=== PATIENT | female | born 1990 | race Hispanic/Latino ===

== ENCOUNTER 2017-12-01 18:10 | Inpatient (IN) | payer OTHER ==
[2017-12-01 18:45] LABS: Basophils % (Auto) 0.3 % (0.0-1.8); Eosinophils # (Auto) 0.1 K/mm3 (0.0-0.4); Eosinophils % (Auto) 0.7 % (0.0-4.3); Hemoglobin 14.6 gm/dl (10.1-14.3); Lymphocytes # (Auto) 4.1 K/mm3 (1.2-5.4); Lymphocytes % (Auto) 34.7 % (13.4-35.0); Mean Corpuscular HGB Conc 33 % (30-34); Mean Corpuscular Hemoglobin 28 pg (28-32); Mean Corpuscular Volume 86 fl (79-97); Monocytes # (Auto) 0.9 K/mm3 (0.0-0.8); Monocytes % (Auto) 7.5 % (0.0-7.3); Platelet Count 261 K/mm3 (140-440); Red Blood Count 5.15 M/mm3 (3.65-5.03); Red Cell Distribution Width 15.7 % (13.2-15.2)
[2017-12-01 19:21] LABS: Bilirubin,Urine NEG (Negative); Blood,Urine NEG (Negative); Color,Urine Yellow (Yellow); Protein,Urine <15 mg/dL mg/dL (Negative); Urobilinogen,Urine < 2.0 mg/dL (<2.0)
[2017-12-01 19:26] LABS: HCG Qualitative,Urine Negative (Negative)
[2017-12-01 20:08] LABS: Alanine Aminotransferase 230 units/L (7-56); Albumin 4.3 g/dL (3.9-5); BUN/Creatinine Ratio 14; Blood Urea Nitrogen 11 mg/dL (7-17); Calcium 9.1 mg/dL (8.4-10.2); Hemolysis Index 14
[2017-12-01] MEDS ORDERED: NACL 0.9% 1000 ML 1,000 ML IV ONE (20:59)
--- NOTE | 2017-12-01 20:59 | Emergency Department Report ---
ED Abdominal Pain HPI - General Chief Complaint: Abdominal Pain Stated Complaint: NAUSEA/VOMITING Time Seen by Provider: 12/01/17 20:57 Source: patient Mode of arrival: Ambulatory Limitations: No Limitations - History of Present Illness Initial Comments: 27-year-old woman with nausea vomiting, with blood, and melanotic stool for the past couple days, along with epigastric pain radiating to her lower abdomen as her primary complaint. She has a history of cirrhosis of the liver, but no prior history of gastric intestinal bleeding or any known history of esophageal varices or even peptic ulcer disease; however she reports that she has also been having some intermittent episodes of vomiting blood, and has been weak, reports that she passed out last evening. Patient is a truck shop supervisor, travels over the country extensively, but had symptoms recently, and was treated at a hospital in [place] last week for similar complaints. She was given prescriptions primarily for antacids. This has not helped. She was evaluated at an emergency department in [place] 1 week ago, was told that things were mostly okay, and given prescriptions for antacid medications primarily, but noted that the dark stool and vomiting began several days later. Patient lives in [place], is currently traveling on the way back, but developed dark stool over the past day or so, but finds that the vomiting is preventing her from getting down any fluids or taking her usual Dilantin, which she takes for seizures, and pre-existing ventriculoperitoneal shunt. Cirrhosis was recently diagnosed, and she has a distant history of intravenous drug use 5-10 years ago, had been stable stage III hepatitis, but that fibrosis/ cirrhosis was diagnosed at cholecystectomy Mar 2017. She has not had any treatment for hepatitis that she is aware of, does not recognize the name of antiviral medications. Onset/Timin -: Gradual, days(s) Location: epigastric Radiation: other (midabdomen) Migration to: no migration Severity: moderate Severity scale (0 -10): 6 Quality: aching Improves With: nothing Worsens With: eating, vomiting Associated Symptoms: nausea, vomiting, hematemesis, melena. denies: fever, chills Treatments Prior to Arrival: antacids - Related Data Allergies Allergy/AdvReac Type Severity Reaction Status Date / Time ketorolac [From Toradol] Allergy Seizure Verified 12/01/17 18:23 tramadol [From Ultram] Allergy Seizure Verified 12/01/17 18:23 ED Review of Systems ROS: Stated complaint: NAUSEA/VOMITING Other details as noted in HPI Constitutional: weakness. denies: chills, diaphoresis, fever ENT: denies: ear pain, throat pain Respiratory: denies: cough, shortness of breath, wheezing Cardiovascular: denies: chest pain, palpitations Endocrine: no symptoms reported Gastrointestinal: abdominal pain, nausea, vomiting, hematemesis, melena Genitourinary: denies: urgency, dysuria, discharge Musculoskeletal: denies: back pain, joint swelling, arthralgia Skin: denies: rash, lesions Neurological: denies: headache, weakness, paresthesias Psychiatric: denies: anxiety, depression Hematological/Lymphatic: denies: easy bleeding, easy bruising ED Past Medical Hx - Past Medical History Previous Medical History?: Yes Hx Liver Disease: Yes (hepatitis C) Hx of Cancer: Yes Additional medical history: Hydrocephalus with PURE CULTURE OPERATOR shunt, S/P repair Jul 2016. stage IV cirrhosis of liver due to infection in March of 2017, cholecystectomy Mar 2017 - Surgical History Past Surgical History?: Yes Hx Cholecystectomy: Yes Additional Surgical History: Jul 2016 PURE CULTURE OPERATOR shunt revision. - Social History Smoking Status: Current Every Day Smoker Substance Use Type: None, Marijuana (occasionally) ED Physical Exam - General Limitations: No Limitations General appearance: alert, in no apparent distress - Head Head exam: Present: atraumatic - Eye Eye exam: Present: normal appearance, PERRL - ENT ENT exam: Present: normal exam - Neck Neck exam: Present: normal inspection. Absent: tenderness - Respiratory Respiratory exam: Present: normal lung sounds bilaterally. Absent: wheezes, rales, rhonchi - Cardiovascular Cardiovascular Exam: Present: regular rate - GI/Abdominal GI/Abdominal exam: Present: tenderness (localized epigastrium, without guarding or rebound). Absent: guarding, rebound, normal bowel sounds - Rectal Rectal exam: Present: heme (+) stool (minimal amount of stool, guaiac is barely positive) - Extremities Exam Extremities exam: Present: other (poor vascular access) - Back Exam Back exam: Present: normal inspection ED Course Vital Signs 12/01/17 12/01/17 12/01/17 18:13 20:26 22:08 Temperature 99.0 F Pulse Rate 122 H Respiratory 16 16 Rate Blood Pressure 140/88 O2 Sat by Pulse 98 98 Oximetry - Consultations Consultation #1: 12/02/17 01:35 Hospital is contacted at 00 15 hours for admission for this patient with possible GI bleed, and history of hepatitis C with cirrhosis, with possibility of esophageal varices or even peptic ulcer disease or gastric ulcer. Although patient is currently stable, she will need serial monitoring of hemoglobin and hematocrit, and stabilizing treatment if she shows signs of significant bleeding , which is possible with her underlying comorbid conditions. ED Medical Decision Making - Lab Data Result diagrams: 12/01/17 18:31 12/01/17 21:04 - Medical Decision Making Patient has heme-positive stool, with recent history of persistent upper abdominal pain, and hematemesis, suggestive of an upper GI bleed, or the possibility of esophageal varices, given patient's underlying condition of hepatitis C and secondary cirrhosis. Although patient is currently stable, she will need serial monitoring of hemoglobin and hematocrit, and stabilizing treatment if she shows signs of significant bleeding, which is possible with her underlying comorbid conditions. Critical Care Time: No Critical care attestation.: If time is entered above; I have spent that time in minutes in the direct care of this critically ill patient, excluding procedure time. ED Disposition Disposition: OP ADMIT IP TO THIS HOSP Is pt being admited?: Yes Does the pt Need Aspirin: No Condition: Stable Instructions: Abdominal Pain (ED) Referrals: PRIMARY CARE, [Primary Care Provider] - 3-5 Days Time of Disposition: 00:30
[2017-12-01 21:31] LABS: INR 0.9 (0.87-1.13)
[2017-12-01 21:34] LABS: Alanine Aminotransferase 230 units/L (7-56); BUN/Creatinine Ratio 14; Blood Urea Nitrogen 10 mg/dL (7-17); Calcium 9.2 mg/dL (8.4-10.2); Hemolysis Index 25
[2017-12-01 21:35] LABS: Bilirubin,Direct < 0.2 mg/dL (0-0.2)
[2017-12-01 21:45] LABS: Albumin 4.5 g/dL (3.9-5)
[2017-12-01] MEDS ORDERED: PROTONIX IV ONE (21:48)
[2017-12-01] MEDS ORDERED: ROXICODONE PO ONE (21:49)
[2017-12-01] MEDS ORDERED: ZOFRAN ODT PO ONE (21:50)
[2017-12-01] MEDS ORDERED: CEREBYX 1,000 MG.PE in NACL 0.9% 100 ML IV ONE (22:00)
[2017-12-01] MEDS ORDERED: LIDOCAINE VISCOUS 2% PO ONE (23:26)
[2017-12-01] MEDS ORDERED: ALUM-MAG HYDROX-SIMETH 200-200-20MG/5ML PO ONE (23:27)
[2017-12-01] MEDS ORDERED: XYLOCAINE CARDIAC IV ONE (23:36)
[2017-12-01] MEDS ORDERED: BENADRYL IV ONE (23:36)
[2017-12-02] MEDS ORDERED: SODIUM CHLORIDE FLUSH SYRINGE 10 ML IV PRN (00:58)
[2017-12-02] MEDS ORDERED: MOTRIN PO PRN (01:02)
--- NOTE | 2017-12-02 02:18 | History and Physical Report ---
History of Present Illness Date of examination: 12/02/17 Date of admission: 12/02/17 00:59 Chief complaint: Nausea and vomiting History of present illness: Patient is a 27-year-old female with history of cirrhosis who presented to the ED on account of 4 days history of vomiting bloody emesis. She has associated upper abdominal pain and passage of black tarry stool. She also admitted to headaches, dizziness, generalized weakness, chest heaviness, shortness of breath, palpitations and an episode of syncope. No fever, chills, cough, leg swelling, orthopnea, or PND. Past History Past Medical History: other (cirrhosis, chronic hepatitis B and C, hydrocephalus s/p ARCHITECTURAL COATING FINISHER shunt placement) Past Surgical History: cholecystectomy, Other (ARCHITECTURAL COATING FINISHER shunt placement) Social history: smoking (for 15 years. Used IV dilaudid for 2 years but quitted 5 years ago. Occasional Marijuana user. Denies alcohol use) Family history: other (reviewed and noncontributory) Medications and Allergies Allergies Allergy/AdvReac Type Severity Reaction Status Date / Time ketorolac [From Toradol] Allergy Seizure Verified 12/01/17 18:23 tramadol [From Ultram] Allergy Seizure Verified 12/01/17 18:23 Active Meds: Active Medications Potassium Chloride (Kcl 10meq/100ml) 10 meq in 100 mls @ 100 mls/hr IV Q1H [facility] Stop: 12/02/17 05:59 Ondansetron HCl (Zofran) 4 mg IV Q8H PRN PRN Reason: Nausea And Vomiting Oxycodone HCl (Roxicodone) 5 mg PO Q4H PRN PRN Reason: Pain Pantoprazole Sodium (Protonix) 40 mg IV DAILY [facility] Potassium Chloride (K-Dur) 40 meq PO DAILY [facility] Stop: 12/04/17 09:59 Sodium Chloride (Sodium Chloride Flush Syringe 10 Ml) 10 ml IV BID [facility] Sodium Chloride (Sodium Chloride Flush Syringe 10 Ml) 10 ml IV PRN PRN PRN Reason: LINE FLUSH Review of Systems All systems: negative (except as documented in the HPI, all other systems were reviewed and negative.) Exam - Constitutional Vitals: Temp Pulse Resp BP Pulse Ox 99.0 F 82 25 H 133/86 100 12/01/17 18:13 12/02/17 00:00 12/02/17 00:00 12/02/17 00:16 12/02/17 00:16 General appearance: Present: no acute distress - EENT Eyes: Present: PERRL, EOM intact ENT: hearing intact, clear oral mucosa - Neck Neck: Present: supple, normal ROM - Respiratory Respiratory effort: normal Respiratory: bilateral: CTA - Cardiovascular Rhythm: regular Heart Sounds: Present: S1 & S2. Absent: rub, click - Extremities Extremities: pulses symmetrical, No edema - Abdominal General gastrointestinal: Present: soft, tender (epigastric), non-distended, normal bowel sounds Female genitourinary: Present: normal - Integumentary Integumentary: Present: warm, dry - Musculoskeletal Musculoskeletal: gait normal, strength equal bilaterally - Psychiatric Psychiatric: appropriate mood/affect - Neurologic Neurologic: CNII-XII intact, moves all extremities Results - Labs CBC & Chem 7: 12/01/17 18:31 12/01/17 21:04 Labs: Laboratory Last Values WBC 11.9 K/mm3 (4.5-11.0) H 12/01/17 18:31 RBC 5.15 M/mm3 (3.65-5.03) H 12/01/17 18:31 Hgb 14.6 gm/dl (10.1-14.3) H 12/01/17 18:31 Hct 44.0 % (30.3-42.9) H 12/01/17 18:31 MCV 86 fl (79-97) 12/01/17 18:31 MCH 28 pg (28-32) 12/01/17 18:31 MCHC 33 % (30-34) 12/01/17 18: RDW 15.7 % (13.2-15.2) H 12/01/17 18:31 Plt Count 261 K/mm3 (140-440) 12/01/17 18:31 Lymph % (Auto) 34.7 % (13.4-35.0) 12/01/17 18:31 [place] % (Auto) 7.5 % (0.0-7.3) H 12/01/17 18:31 Eos % (Auto) 0.7 % (0.0-4.3) 12/01/17 18:31 Baso % (Auto) 0.3 % (0.0-1.8) 05/06/18 18:31 Lymph # 4.1 K/mm3 (1.2-5.4) 12/01/17 18:31 [place] # 0.9 K/mm3 (0.0-0.8) H 12/01/17 18:31 Eos # 0.1 K/mm3 (0.0-0.4) 12/01/17 18:31 Baso # 0.0 K/mm3 (0.0-0.1) 12/01/17 18:31 Seg Neutrophils % 56.8 % (40.0-70.0) 12/01/17 18:31 Seg Neutrophils # 6.8 K/mm3 (1.8-7.7) 12/01/17 18:31 PT 12.6 Sec. (12.2-14.9) 12/01/17 21:06 INR 0.90 (0.87-1.13) 12/01/17 21:06 Sodium 138 mmol/L (137-145) 12/01/17 21:04 Potassium 3.3 mmol/L (3.6-5.0) L 12/01/17 21:04 Chloride 98.1 mmol/L (98-107) 12/01/17 21:04 Carbon Dioxide 27 mmol/L (22-30) 12/01/17 21:04 Anion Gap 16 mmol/L 12/01/17 21:04 BUN 10 mg/dL (7-17) 12/01/17 21:04 Creatinine 0.7 mg/dL (0.7-1.2) 12/01/17 21:04 Estimated GFR > 60 ml/min 12/01/17 21:04 BUN/Creatinine Ratio 14 % 12/01/17 21:04 Glucose 95 mg/dL (65-100) 12/01/17 21:04 Calcium 9.2 mg/dL (8.4-10.2) 12/01/17 21:04 Total Bilirubin 0.50 mg/dL (0.1-1.2) 12/01/17 21:04 Direct Bilirubin < 0.2 mg/dL (0-0.2) 12/01/17 21:04 Indirect Bilirubin 0.3 mg/dL 12/01/17 21:04 AST 160 units/L (5-40) H 12/01/17 21:04 ALT 230 units/L (7-56) H 12/01/17 21:04 Alkaline Phosphatase 95 units/L (35-129) 12/01/17 21:04 Ammonia 16.0 umol/L (25-60) L 12/01/17 21:04 Total Protein 7.8 g/dL (6.3-8.2) 12/01/17 21:04 Albumin 4.5 g/dL (3.9-5) 12/01/17 21:04 Albumin/Globulin Ratio 1.4 % 12/01/17 21:04 Urine Color Yellow (Yellow) 12/01/17 18:44 Urine Turbidity Clear (Clear) 12/01/17 18:44 Urine pH 7.0 (5.0-7.0) 12/01/17 18:44 Ur Specific [employer] 1.008 (1.003-1.030) 12/01/17 18:44 Urine Protein <15 mg/dl mg/dL (Negative) 12/01/17 18:44 Urine Glucose (UA) Neg mg/dL (Negative) 12/01/17 18:44 Urine Ketones Neg mg/dL (Negative) 12/01/17 18:44 Urine Blood Neg (Negative) 12/01/17 18:44 Urine Nitrite Neg (Negative) 12/01/17 18:44 Urine Bilirubin Neg (Negative) 12/01/17 18:44 Urine Urobilinogen < 2.0 mg/dL (<2.0) 12/01/17 18:44 Ur Leukocyte Esterase Neg (Negative) 12/01/17 18:44 Urine WBC (Auto) 1.0 /HPF (0.0-6.0) 12/01/17 18:44 Urine RBC (Auto) 2.0 /HPF (0.0-6.0) 12/01/17 18:44 U Epithel Cells (Auto) 1.0 /HPF (0-13.0) 12/01/17 18:44 Urine HCG, Qual Negative (Negative) 12/01/17 18:44 Phenytoin 0.8 ug/mL (10.0-20.0) L 12/01/17 21:06 Blood Type A POSITIVE 12/01/17 18:31 Antibody Screen Negative 12/01/17 18:31 Assessment and Plan Assessment and plan: GI bleed with melena -H/H stable, will monitor levels and transfuse pt as needed -Consider GI consult Intractable nausea and vomiting -Patient will be placed on antiemetics Hypokalemia -Will replete potassium and monitor level -Will check magnesium level Chronic hepatitis B and C -For outpatient follow-up Cirrhosis of the liver -For outpatient follow-up Transaminitis secondary to the cirrhosis -Will monitor LFT levels. Polysubstance abuse(tobacco, IV dilaudid and marijuana) -Patient counseled on cessation Prophylaxis -DVT prophylaxis with SCD and GI prophylaxis with Protonix 38 minutes spent coordinating care
[2017-12-02] MEDS ORDERED: NACL 0.9% 1000 ML 1,000 ML IV ONE (02:43)
[2017-12-02] MEDS: ZOFRAN IV PRN ×2 (03:25→12:33)
[2017-12-02] MEDS: KCL 10MEQ/100ML 10 MEQ/100 ML BAG IV SCH ×4 (03:25→08:02)
[2017-12-02] MEDS: ROXICODONE PO PRN ×4 (03:46→17:33)
[2017-12-02] MEDS ORDERED: BENADRYL PO ONE (04:12)
[2017-12-02 06:15] LABS: Basophils % (Auto) 0.2 % (0.0-1.8); Eosinophils # (Auto) 0.1 K/mm3 (0.0-0.4); Eosinophils % (Auto) 0.9 % (0.0-4.3); Hematocrit 38.2 % (30.3-42.9); Hemoglobin 12.2 gm/dl (10.1-14.3); Lymphocytes # (Auto) 3.5 K/mm3 (1.2-5.4); Lymphocytes % (Auto) 39.8 % (13.4-35.0); Mean Corpuscular HGB Conc 32 % (30-34); Mean Corpuscular Hemoglobin 28 pg (28-32); Mean Corpuscular Volume 86 fl (79-97); Monocytes # (Auto) 0.7 K/mm3 (0.0-0.8); Monocytes % (Auto) 8.1 % (0.0-7.3); Platelet Count 216 K/mm3 (140-440); Red Blood Count 4.43 M/mm3 (3.65-5.03); Red Cell Distribution Width 16.2 % (13.2-15.2)
[2017-12-02 07:09] LABS: Bilirubin,Urine NEG (Negative); Blood,Urine SM (Negative); Color,Urine Yellow (Yellow); Mucus,Urine 1+ /HPF; Protein,Urine <15 mg/dL mg/dL (Negative); Urobilinogen,Urine < 2.0 mg/dL (<2.0)
[2017-12-02] MEDS: K-DUR PO SCH (09:47)
[2017-12-02] MEDS: REGLAN IV PRN (09:51)
[2017-12-02] MEDS: PROTONIX IV SCH (12:18)
[2017-12-02] MEDS: SODIUM CHLORIDE FLUSH SYRINGE 10 ML IV SCH ×2 (12:20→22:15)
--- NOTE | 2017-12-02 12:28 | Gastroenterology Consultation ---
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 This morning she was resting in bed w/o acute distress and family at bedside. Reports multiple episodes of N/V daily x 8 days with emesis being bile colored until 4 days ago when it turned to bright red blood along with developing black tarry stools. Last episode of hematemesis/melena was yesterday. No signs of active bleeding today. Tolerating clear liquids. Denies fever, wt loss, CP, SOB, dizziness, dysphagia, diarrhea, constipation, or hematochezia. 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 Last use of IV drugs approximately 3 months ago per pt/family. No ETOH abuse. No previous EGD. No hx of PUD or prior GI bleeding but admits to taking Ibuprofen 4x/day at home. Past History Past Medical History: seizures, other (cirrhosis, chronic hepatitis B and C, hydrocephalus s/p MACHINE SPRING FORMER shunt placement) Past Surgical History: cholecystectomy, Other (MACHINE SPRING FORMER shunt placement) Social history: smoking (for 15 years. Used IV dilaudid for 2 years but quitted 5 years ago. Occasional Marijuana user. Denies alcohol use), IV drug use Family history: other (reviewed and noncontributory) Medications and Allergies Allergies Allergy/AdvReac Type Severity Reaction Status Date / Time ketorolac [From Toradol] Allergy Seizure Verified 12/01/17 18:23 tramadol [From Ultram] Allergy Seizure Verified 12/01/17 18:23 cranberry Allergy Intermediate Hives Uncoded 12/02/17 12:27 Active Meds: Active Medications Sodium Chloride (Nacl 0.9% 1000 Ml) 1,000 mls @ 75 mls/hr IV ONCE ONE Stop: 12/02/17 16:02 Last Admin: 12/02/17 03:25 Dose: 75 mls/hr Metoclopramide HCl (Reglan) 10 mg IV Q6H PRN PRN Reason: Nausea And Vomiting Last Admin: 12/02/17 09:51 Dose: 10 mg Ondansetron HCl (Zofran) 4 mg IV Q8H PRN PRN Reason: Nausea And Vomiting Last Admin: 12/02/17 03:25 Dose: 4 mg Oxycodone HCl (Roxicodone) 5 mg PO Q4H PRN PRN Reason: Pain Last Admin: 12/02/17 12:24 Dose: 5 mg Pantoprazole Sodium (Protonix) 40 mg IV DAILY [facility] Last Admin: 12/02/17 12:18 Dose: 40 mg Potassium Chloride (K-Dur) 40 meq PO DAILY [facility] Stop: 12/04/17 09:59 Last Admin: 12/02/17 09:47 Dose: 40 meq Sodium Chloride (Sodium Chloride Flush Syringe 10 Ml) 10 ml IV BID [facility] Last Admin: 12/02/17 12:20 Dose: 10 ml Sodium Chloride (Sodium Chloride Flush Syringe 10 Ml) 10 ml IV PRN PRN PRN Reason: LINE FLUSH Review of Systems - Review of Systems All systems: negative Gastrointestinal: abdominal pain (epigastric), nausea, vomiting, hematemesis, melena Exam - Constitutional Vital Signs: Temp Pulse Resp BP Pulse Ox 97.9 F 74 18 124/83 98 12/02/17 08:05 12/02/17 08:05 12/02/17 12:24 12/02/17 08:05 12/02/17 08:05 General appearance: no acute distress - EENT Eyes: PERRL, EOM intact ENT: hearing intact - Respiratory Respiratory: bilateral: CTA - Cardiovascular Rhythm: regular Heart Sounds: Present: S1 & S2 - Gastrointestinal General gastrointestinal: Present: soft, tender (mild generalized TTP), non- distended, normal bowel sounds - Integumentary Integumentary: Present: warm, dry - Neurologic Neurological: alert and oriented x3 - Labs CBC & Chem 7: 12/02/17 05:24 12/01/17 21:04 Lab Results: Laboratory Results - last 24 hr 12/01/17 12/01/17 12/01/17 18:31 18:31 18:31 WBC 11.9 H RBC 5.15 H Hgb 14.6 H Hct 44.0 H MCV 86 MCH 28 MCHC 33 RDW 15.7 H Plt Count 261 Lymph % (Auto) 34.7 [place] % (Auto) 7.5 H Eos % (Auto) 0.7 Baso % (Auto) 0.3 Lymph # 4.1 [place] # 0.9 H Eos # 0.1 Baso # 0.0 Seg Neutrophils % 56.8 Seg Neutrophils # 6.8 PT INR Sodium 136 L Potassium 3.3 L Chloride 94.6 L Carbon Dioxide 23 Anion Gap 22 BUN 11 Creatinine 0.8 Estimated GFR > 60 BUN/Creatinine Ratio 14 Glucose 134 H POC Glucose Calcium 9.1 Magnesium Total Bilirubin 0.50 Direct Bilirubin Indirect Bilirubin AST 173 H ALT 230 H Alkaline Phosphatase 101 Ammonia Total Protein 8.1 Albumin 4.3 Albumin/Globulin Ratio 1.1 Urine Color Urine Turbidity Urine pH Ur Specific [place] Urine Protein Urine Glucose (UA) Urine Ketones Urine Blood Urine Nitrite Urine Bilirubin Urine Urobilinogen Ur Leukocyte Esterase Urine WBC (Auto) Urine RBC (Auto) U Epithel Cells (Auto) Urine Mucus Urine HCG, Qual Phenytoin Blood Type A POSITIVE Antibody Screen Negative 12/01/17 12/01/17 12/01/17 18:44 21:04 21:04 WBC RBC Hgb Hct MCV MCH MCHC RDW Plt Count Lymph % (Auto) [place] % (Auto) Eos % (Auto) Baso % (Auto) Lymph # [place] # Eos # Baso # Seg Neutrophils % Seg Neutrophils # PT INR Sodium 138 Potassium 3.3 L Chloride 98.1 Carbon Dioxide 27 Anion Gap 16 BUN 10 Creatinine 0.7 Estimated GFR > 60 BUN/Creatinine Ratio 14 Glucose 95 POC Glucose Calcium 9.2 Magnesium Total Bilirubin 0.50 Direct Bilirubin < 0.2 Indirect Bilirubin 0.3 AST 160 H ALT 230 H Alkaline Phosphatase 95 Ammonia 16.0 L Total Protein 7.8 Albumin 4.5 Albumin/Globulin Ratio 1.4 Urine Color Yellow Urine Turbidity Clear Urine pH 7.0 Ur Specific [place] 1.008 Urine Protein <15 mg/dl Urine Glucose (UA) Neg Urine Ketones Neg Urine Blood Neg Urine Nitrite Neg Urine Bilirubin Neg Urine Urobilinogen < 2.0 Ur Leukocyte Esterase Neg Urine WBC (Auto) 1.0 Urine RBC (Auto) 2.0 U Epithel Cells (Auto) 1.0 Urine Mucus Urine HCG, Qual Negative Phenytoin Blood Type Antibody Screen 12/01/17 12/01/17 12/02/17 21:06 21:06 05:24 WBC 8.9 RBC 4.43 Hgb 12.2 Hct 38.2 MCV 86 MCH 28 MCHC 32 RDW 16.2 H Plt Count 216 Lymph % (Auto) 39.8 H [place] % (Auto) 8.1 H Eos % (Auto) 0.9 Baso % (Auto) 0.2 Lymph # 3.5 [place] # 0.7 Eos # 0.1 Baso # 0.0 Seg Neutrophils % 51.0 Seg Neutrophils # 4.5 PT 12.6 INR 0.90 Sodium Potassium Chloride Carbon Dioxide Anion Gap BUN Creatinine Estimated GFR BUN/Creatinine Ratio Glucose POC Glucose Calcium Magnesium Total Bilirubin Direct Bilirubin Indirect Bilirubin AST ALT Alkaline Phosphatase Ammonia Total Protein Albumin Albumin/Globulin Ratio Urine Color Urine Turbidity Urine pH Ur Specific [place] Urine Protein Urine Glucose (UA) Urine Ketones Urine Blood Urine Nitrite Urine Bilirubin Urine Urobilinogen Ur Leukocyte Esterase Urine WBC (Auto) Urine RBC (Auto) U Epithel Cells (Auto) Urine Mucus Urine HCG, Qual Phenytoin 0.8 L Blood Type Antibody Screen 12/02/17 12/02/17 12/02/17 05:24 06:35 11:41 WBC RBC Hgb Hct MCV MCH MCHC RDW Plt Count Lymph % (Auto) [place] % (Auto) Eos % (Auto) Baso % (Auto) Lymph # [place] # Eos # Baso # Seg Neutrophils % Seg Neutrophils # PT INR Sodium Potassium Chloride Carbon Dioxide Anion Gap BUN Creatinine Estimated GFR BUN/Creatinine Ratio Glucose POC Glucose 83 Calcium Magnesium 2.00 Total Bilirubin Direct Bilirubin Indirect Bilirubin AST ALT Alkaline Phosphatase Ammonia Total Protein Albumin Albumin/Globulin Ratio Urine Color Yellow Urine Turbidity Clear Urine pH 6.0 Ur Specific [place] 1.015 Urine Protein <15 mg/dl Urine Glucose (UA) Neg Urine Ketones Tr Urine Blood Sm Urine Nitrite Neg Urine Bilirubin Neg Urine Urobilinogen < 2.0 Ur Leukocyte Esterase Neg Urine WBC (Auto) 1.0 Urine RBC (Auto) 3.0 U Epithel Cells (Auto) 7.0 Urine Mucus 1+ Urine HCG, Qual Phenytoin Blood Type Antibody Screen Assessment and Plan 1.UGIB 2.hematemesis 3.melena 4.epigastric pain 5.hx of cirrhosis 2/2 hepatitis 6.substance abuse -H/H 12.2/38.2 -continue to monitor H/H and transfuse as needed -hold blood thinning medications -no active signs of bleeding -HD stable -etiology unclear- possible M-W tear vs PUD vs other (varices?-doubt) -will schedule for EGD in am -clear liquids today then NPO after MN -continue current medications to include PPI and supportive care -will follow <NIALL COLLINS - Last Filed: 12/02/17 16:15> Medications and Allergies Active Meds: Active Medications Metoclopramide HCl (Reglan) 10 mg IV Q6H PRN PRN Reason: Nausea And Vomiting Last Admin: 12/02/17 09:51 Dose: 10 mg Ondansetron HCl (Zofran) 4 mg IV Q8H PRN PRN Reason: Nausea And Vomiting Last Admin: 12/02/17 12:33 Dose: 4 mg Oxycodone HCl (Roxicodone) 5 mg PO Q4H PRN PRN Reason: Pain Last Admin: 12/02/17 12:24 Dose: 5 mg Pantoprazole Sodium (Protonix) 40 mg IV DAILY [facility] Last Admin: 12/02/17 12:18 Dose: 40 mg Potassium Chloride (K-Dur) 40 meq PO DAILY [facility] Stop: 12/04/17 09:59 Last Admin: 12/02/17 09:47 Dose: 40 meq Sodium Chloride (Sodium Chloride Flush Syringe 10 Ml) 10 ml IV BID [facility] Last Admin: 12/02/17 12:20 Dose: 10 ml Sodium Chloride (Sodium Chloride Flush Syringe 10 Ml) 10 ml IV PRN PRN PRN Reason: LINE FLUSH Exam - Constitutional Vital Signs: Temp Pulse Resp BP Pulse Ox 97.9 F 74 18 124/83 98 12/02/17 08:05 12/02/17 08:05 12/02/17 12:24 12/02/17 08:05 12/02/17 08:05 - Labs CBC & Chem 7: 12/02/17 05:24 12/01/17 21:04 Lab Results: Laboratory Results - last 24 hr 12/01/17 12/01/17 12/01/17 18:31 18:31 18:31 WBC 11.9 H RBC 5.15 H Hgb 14.6 H Hct 44.0 H MCV 86 MCH 28 MCHC 33 RDW 15.7 H Plt Count 261 Lymph % (Auto) 34.7 [place] % (Auto) 7.5 H Eos % (Auto) 0.7 Baso % (Auto) 0.3 Lymph # 4.1 [place] # 0.9 H Eos # 0.1 Baso # 0.0 Seg Neutrophils % 56.8 Seg Neutrophils # 6.8 PT INR Sodium 136 L Potassium 3.3 L Chloride 94.6 L Carbon Dioxide 23 Anion Gap 22 BUN 11 Creatinine 0.8 Estimated GFR > 60 BUN/Creatinine Ratio 14 Glucose 134 H POC Glucose Calcium 9.1 Magnesium Total Bilirubin 0.50 Direct Bilirubin Indirect Bilirubin AST 173 H ALT 230 H Alkaline Phosphatase 101 Ammonia Total Protein 8.1 Albumin 4.3 Albumin/Globulin Ratio 1.1 Urine Color Urine Turbidity Urine pH Ur Specific [place] Urine Protein Urine Glucose (UA) Urine Ketones Urine Blood Urine Nitrite Urine Bilirubin Urine Urobilinogen Ur Leukocyte Esterase Urine WBC (Auto) Urine RBC (Auto) U Epithel Cells (Auto) Urine Mucus Urine HCG, Qual Phenytoin Blood Type A POSITIVE Antibody Screen Negative 12/01/17 12/01/17 12/01/17 18:44 21:04 21:04 WBC RBC Hgb Hct MCV MCH MCHC RDW Plt Count Lymph % (Auto) [place] % (Auto) Eos % (Auto) Baso % (Auto) Lymph # [place] # Eos # Baso # Seg Neutrophils % Seg Neutrophils # PT INR Sodium 138 Potassium 3.3 L Chloride 98.1 Carbon Dioxide 27 Anion Gap 16 BUN 10 Creatinine 0.7 Estimated GFR > 60 BUN/Creatinine Ratio 14 Glucose 95 POC Glucose Calcium 9.2 Magnesium Total Bilirubin 0.50 Direct Bilirubin < 0.2 Indirect Bilirubin 0.3 AST 160 H ALT 230 H Alkaline Phosphatase 95 Ammonia 16.0 L Total Protein 7.8 Albumin 4.5 Albumin/Globulin Ratio 1.4 Urine Color Yellow Urine Turbidity Clear Urine pH 7.0 Ur Specific [place] 1.008 Urine Protein <15 mg/dl Urine Glucose (UA) Neg Urine Ketones Neg Urine Blood Neg Urine Nitrite Neg Urine Bilirubin Neg Urine Urobilinogen < 2.0 Ur Leukocyte Esterase Neg Urine WBC (Auto) 1.0 Urine RBC (Auto) 2.0 U Epithel Cells (Auto) 1.0 Urine Mucus Urine HCG, Qual Negative Phenytoin Blood Type Antibody Screen 12/01/17 12/01/17 12/02/17 21:06 21:06 05:24 WBC 8.9 RBC 4.43 Hgb 12.2 Hct 38.2 MCV 86 MCH 28 MCHC 32 RDW 16.2 H Plt Count 216 Lymph % (Auto) 39.8 H [place] % (Auto) 8.1 H Eos % (Auto) 0.9 Baso % (Auto) 0.2 Lymph # 3.5 [place] # 0.7 Eos # 0.1 Baso # 0.0 Seg Neutrophils % 51.0 Seg Neutrophils # 4.5 PT 12.6 INR 0.90 Sodium Potassium Chloride Carbon Dioxide Anion Gap BUN Creatinine Estimated GFR BUN/Creatinine Ratio Glucose POC Glucose Calcium Magnesium Total Bilirubin Direct Bilirubin Indirect Bilirubin AST ALT Alkaline Phosphatase Ammonia Total Protein Albumin Albumin/Globulin Ratio Urine Color Urine Turbidity Urine pH Ur Specific [place] Urine Protein Urine Glucose (UA) Urine Ketones Urine Blood Urine Nitrite Urine Bilirubin Urine Urobilinogen Ur Leukocyte Esterase Urine WBC (Auto) Urine RBC (Auto) U Epithel Cells (Auto) Urine Mucus Urine HCG, Qual Phenytoin 0.8 L Blood Type Antibody Screen 12/02/17 12/02/17 12/02/17 05:24 06:35 11:41 WBC RBC Hgb Hct MCV MCH MCHC RDW Plt Count Lymph % (Auto) [place] % (Auto) Eos % (Auto) Baso % (Auto) Lymph # [place] # Eos # Baso # Seg Neutrophils % Seg Neutrophils # PT INR Sodium Potassium Chloride Carbon Dioxide Anion Gap BUN Creatinine Estimated GFR BUN/Creatinine Ratio Glucose POC Glucose 83 Calcium Magnesium 2.00 Total Bilirubin Direct Bilirubin Indirect Bilirubin AST ALT Alkaline Phosphatase Ammonia Total Protein Albumin Albumin/Globulin Ratio Urine Color Yellow Urine Turbidity Clear Urine pH 6.0 Ur Specific [place] 1.015 Urine Protein <15 mg/dl Urine Glucose (UA) Neg Urine Ketones Tr Urine Blood Sm Urine Nitrite Neg Urine Bilirubin Neg Urine Urobilinogen < 2.0 Ur Leukocyte Esterase Neg Urine WBC (Auto) 1.0 Urine RBC (Auto) 3.0 U Epithel Cells (Auto) 7.0 Urine Mucus 1+ Urine HCG, Qual Phenytoin Blood Type Antibody Screen Assessment and Plan - Patient Problems (1) Cirrhosis Current Visit: Yes Status: Acute (2) Hepatitis B Current Visit: Yes Status: Acute (3) Hepatitis C Current Visit: Yes Status: Acute Plan to address problem: The patient keeps her residence mostly in [place] although 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 Work up for treatment has already begun in [place] and she will return there for care of hepatitis B and C. (4) Nausea & vomiting Current Visit: Yes Status: Acute Plan to address problem: EGD is planned tomorrow to evaluate persistent UGI symptoms. (5) Epigastric pain Current Visit: Yes Status: Acute
--- NOTE | 2017-12-02 14:02 | Event Note ---
Date: 12/02/17 Patient seen and examined. Pt is a 27-year-old female with history of cirrhosis who presented to the ED on account of 4 days history of vomiting bloody emesis. GI following, plan for EGD tomorrow. Will cont current Mx and plan.
[2017-12-02] MEDS ORDERED: BENADRYL PO PRN (21:51)
[2017-12-02] MEDS: DILANTIN PO SCH (22:14)
[2017-12-03] MEDS: DILANTIN PO SCH ×2 (06:00→13:31)
[2017-12-03] MEDS: REGLAN IV PRN ×2 (06:07→12:46)
[2017-12-03] MEDS ORDERED: MORPHINE IV PRN (07:54)
[2017-12-03] MEDS: ZOFRAN IV PRN (08:09)
[2017-12-03 08:29] LABS: Basophils % (Auto) 0.2 % (0.0-1.8); Eosinophils # (Auto) 0.1 K/mm3 (0.0-0.4); Eosinophils % (Auto) 1.3 % (0.0-4.3); Hematocrit 43.3 % (30.3-42.9); Hemoglobin 14.6 gm/dl (10.1-14.3); Lymphocytes # (Auto) 3.5 K/mm3 (1.2-5.4); Lymphocytes % (Auto) 38.3 % (13.4-35.0); Mean Corpuscular HGB Conc 34 % (30-34); Mean Corpuscular Hemoglobin 29 pg (28-32); Mean Corpuscular Volume 85 fl (79-97); Monocytes # (Auto) 0.8 K/mm3 (0.0-0.8); Monocytes % (Auto) 9.2 % (0.0-7.3); Platelet Count 212 K/mm3 (140-440); Red Blood Count 5.08 M/mm3 (3.65-5.03); Red Cell Distribution Width 16.1 % (13.2-15.2)
[2017-12-03 08:44] LABS: Alanine Aminotransferase 146 units/L (7-56); Albumin 3.9 g/dL (3.9-5); BUN/Creatinine Ratio 8; Blood Urea Nitrogen 5 mg/dL (7-17); Calcium 9.3 mg/dL (8.4-10.2); Hemolysis Index 15
[2017-12-03] MEDS: PROTONIX IV SCH (09:36)
--- NOTE | 2017-12-03 10:38 | Progress Note ---
Hospitalist Physical - Constitutional Vitals: Temp Pulse Resp BP Pulse Ox 98.1 F 74 18 142/86 100 12/03/17 07:47 12/03/17 07:47 12/03/17 07:47 12/03/17 07:47 12/03/17 07:47 General appearance: Present: no acute distress Results - Labs CBC & Chem 7: 12/03/17 08:07 12/03/17 08:07 Labs: Laboratory Last Values WBC 9.2 K/mm3 (4.5-11.0) 12/03/17 08:07 RBC 5.08 M/mm3 (3.65-5.03) H 12/03/17 08:07 Hgb 14.6 gm/dl (10.1-14.3) H 12/03/17 08:07 Hct 43.3 % (30.3-42.9) H 12/03/17 08:07 MCV 85 fl (79-97) 12/03/17 08:07 MCH 29 pg (28-32) 12/03/17 08:07 MCHC 34 % (30-34) 12/03/17 08:07 RDW 16.1 % (13.2-15.2) H 12/03/17 08:07 Plt Count 212 K/mm3 (140-440) 12/03/17 08:07 Lymph % (Auto) 38.3 % (13.4-35.0) H 12/03/17 08:07 [place] % (Auto) 9.2 % (0.0-7.3) H 12/03/17 08:07 Eos % (Auto) 1.3 % (0.0-4.3) 12/03/17 08:07 Baso % (Auto) 0.2 % (0.0-1.8) 12/03/17 08:07 Lymph # 3.5 K/mm3 (1.2-5.4) 12/03/17 08:07 [place] # 0.8 K/mm3 (0.0-0.8) 12/03/17 08:07 Eos # 0.1 K/mm3 (0.0-0.4) 12/03/17 08:07 Baso # 0.0 K/mm3 (0.0-0.1) 12/03/17 08:07 Seg Neutrophils % 51.0 % (40.0-70.0) 12/03/17 08:07 Seg Neutrophils # 4.7 K/mm3 (1.8-7.7) 12/03/17 08:07 PT 12.6 Sec. (12.2-14.9) 12/01/17 21:06 INR 0.90 (0.87-1.13) 12/01/17 21:06 Sodium 139 mmol/L (137-145) 12/03/17 08:07 Potassium 4.2 mmol/L (3.6-5.0) D 12/03/17 08:07 Chloride 100.3 mmol/L (98-107) 12/03/17 08:07 Carbon Dioxide 26 mmol/L (22-30) 12/03/17 08:07 Anion Gap 17 mmol/L 12/03/17 08:07 BUN 5 mg/dL (7-17) L 12/03/17 08:07 Creatinine 0.6 mg/dL (0.7-1.2) L 12/03/17 08:07 Estimated GFR > 60 ml/min 12/03/17 08:07 BUN/Creatinine Ratio 8 % 12/03/17 08:07 Glucose 114 mg/dL (65-100) H 12/03/17 08:07 POC Glucose 83 (70-105) 12/02/17 11:41 Calcium 9.3 mg/dL (8.4-10.2) 12/03/17 08:07 Magnesium 2.00 mg/dL (1.7-2.3) 12/02/17 05:24 Total Bilirubin 0.60 mg/dL (0.1-1.2) 12/03/17 08:07 Direct Bilirubin < 0.2 mg/dL (0-0.2) 12/01/17 21:04 Indirect Bilirubin 0.3 mg/dL 12/01/17 21:04 AST 67 units/L (5-40) H 12/03/17 08:07 ALT 146 units/L (7-56) H 12/03/17 08:07 Alkaline Phosphatase 88 units/L (35-129) 12/03/17 08:07 Ammonia 16.0 umol/L (25-60) L 12/01/17 21:04 Total Protein 7.4 g/dL (6.3-8.2) 12/03/17 08:07 Albumin 3.9 g/dL (3.9-5) 12/03/17 08:07 Albumin/Globulin Ratio 1.1 % 12/03/17 08:07 Urine Color Yellow (Yellow) 12/02/17 06:35 Urine Turbidity Clear (Clear) 12/02/17 06:35 Urine pH 6.0 (5.0-7.0) 12/02/17 06:35 Ur Specific [place] 1.015 (1.003-1.030) 12/02/17 06:35 Urine Protein <15 mg/dl mg/dL (Negative) 12/02/17 06:35 Urine Glucose (UA) Neg mg/dL (Negative) 12/02/17 06:35 Urine Ketones Tr mg/dL (Negative) 12/02/17 06:35 Urine Blood Sm (Negative) 12/02/17 06:35 Urine Nitrite Neg (Negative) 12/02/17 06:35 Urine Bilirubin Neg (Negative) 12/02/17 06:35 Urine Urobilinogen < 2.0 mg/dL (<2.0) 12/02/17 06:35 Ur Leukocyte Esterase Neg (Negative) 12/02/17 06:35 Urine WBC (Auto) 1.0 /HPF (0.0-6.0) 12/02/17 06:35 Urine RBC (Auto) 3.0 /HPF (0.0-6.0) 12/02/17 06:35 U Epithel Cells (Auto) 7.0 /HPF (0-13.0) 12/02/17 06:35 Urine Mucus 1+ /HPF 12/02/17 06:35 Urine HCG, Qual Negative (Negative) 12/01/17 18:44 Phenytoin 0.8 ug/mL (10.0-20.0) L 12/01/17 21:06 Blood Type A POSITIVE 12/01/17:31 Antibody Screen Negative 12/01/17 18:31
[2017-12-03] MEDS ORDERED: ATIVAN IV ONE ×2 (11:15→13:30)
[2017-12-03] MEDS ORDERED: NACL 0.9% 1000 ML 1,000 ML IV SCH (12:00)
[2017-12-03] MEDS ORDERED: WATER FOR IRRIG STERILE IR ONE (12:13)
[2017-12-03] MEDS ORDERED: DIPRIVAN 10 MG/ML IV ONE (12:16)
--- NOTE | 2017-12-03 12:29 | Operative Report ---
Operative Report Operative Report: Date of procedure: 12/03/2017 Procedure: Esophagogastroduodenoscopy with biopsies for H. pylori Preprocedure diagnosis: Nausea, vomiting and abdominal pain. History of cirrhosis rule out varices. Post procedure diagnosis: Mild bile gastritis. No varices of the esophagus or stomach. No ulcers. Endoscopist: Dr. Delgado Anesthesia: Monitored anesthesia care per anesthesia department Medications: Propofol per anesthesia Estimated blood loss: 0 After careful discussion of the nature and purpose of the procedure as well as details the technique risks benefits and alternatives consent was obtained. The patient was placed in the left lateral decubitus position and medicated per anesthesia. The tip of the NoFlo EQ 570 video scope was passed per orum under direct vision into the esophagus and advanced into the stomach and descending duodenum. The descending duodenum the duodenal bulb and pylorus were symmetrical and normal. The scope was withdrawn into the stomach and the stomach then gently insufflated with air. The antrum was normal. 3 biopsies were taken in the prepyloric area for Helicobacter pylori evaluation. The stomach was further insufflated and the scope was then retroflexed and partially withdrawn. The cardia, fundus, and body of the stomach revealed mild patchy erythema but otherwise were within normal limits and easily distensible.The scope was then withdrawn in the forward position. The esophagogastric junction was at 38 cm. The esophageal body was normal throughout. The procedure was was well tolerated and the patient was observed in recovery. Impressions: Mild bile gastritis. No ulcers. No evidence of varices of the esophagus or stomach. Plan: Continue PPI therapy. Add sucralfate. Advance diet and send home if diet is tolerated. I will sign off at this point and follow up when necessary. She will continue her care for her liver disease in [place] where she resides. Electronically signed: Eliazar Delgado MD
--- NOTE | 2017-12-03 12:39 | Anesthesia Consultation ---
Anesthesia Consult and Med Hx Date of service: 12/03/17 - Airway Anesthetic Teeth Evaluation: Poor ROM Head & Neck: Adequate Mental/Hyoid Distance: Adequate Mallampati Class: Class II Intubation Access Assessment: Probably Good - Pulmonary Exam CTA: Yes - Cardiac Exam Cardiac Exam: RRR - Pre-Operative Health Status ASA Pre-Surgery Classification: ASA3 Proposed Anesthetic Plan: MAC - Pre-Anesthesia Comment Pre-Anesthesia Comments: [employer] DRY CELL shunt, neuropathy - Pulmonary Hx Smoking: Yes - Central Nervous System Hx Seizures: Yes Hx Back Pain: Yes - Endocrine Hx Liver Disease: Yes (hepatitis C) - Other Systems Hx Cancer: Yes (cervical 2011)
--- NOTE | 2017-12-03 12:40 | Anesthesia Day of Surgery ---
Anesthesia Day of Surgery - Day of Surgery Patient Examined: Yes Patient H&P Reviewed: Yes Patient is NPO: Yes
[2017-12-03] MEDS ORDERED: CARAFATE PO SCH (13:00)
[2017-12-03] MEDS: ROXICODONE PO PRN (13:40)
[2017-12-03] MEDS: SODIUM CHLORIDE FLUSH SYRINGE 10 ML IV SCH (13:41)
[2017-12-03] MEDS: K-DUR PO SCH (13:41)
--- NOTE | 2017-12-03 14:44 | Post Anesthesia Evaluation ---
- Post Anesthesia Evaluation Patient Participated: Yes Airway Patent: Yes Stable Respiratory Function: Yes Nausea/Vomiting: No Temp > 96.8F: Yes Pain Manageable: Yes Adequeate Hydration: Yes Anesthesia Complications: No
--- NOTE | 2017-12-03 16:09 | Discharge Summary ---
Providers - Providers Date of Admission: 12/02/17 00:59 Date of discharge: 12/03/17 Attending physician: DEVIKA GIANG 12/02/17 09:13 Consult to Physician [CONS] Routine Comment: Consulting Provider: EMILY ZHANG Physician Instructions: Reason For Exam: GI bleed Primary care physician: ATTORNEY RECRUITER Hospitalization Condition: Fair Disposition: DC-01 TO HOME OR SELFCARE Core Measure Documentation - Palliative Care Palliative Care/ Comfort Measures: Not Applicable Exam - Constitutional Vitals: Temp Pulse Resp BP Pulse Ox 98.5 F 74 15 149/86 100 12/03/17 12:25 12/03/17 12:55 12/03/17 12:55 12/03/17 12:55 12/03/17 12:55 Plan Activity: no restrictions Additional Instructions: 1.Follow up with PCP in 1 week. Follow up with: PRIMARY CARE, [Primary Care Provider] - 3-5 Days Prescriptions: Omeprazole 20 mg PO DAILY #30 tablet. Sucralfate [Carafate] 1 gm PO Q6HR 30 Days oral.[id number]
[2017-12-03 17:05] VITALS: BP 115/59
[2017-12-04] MEDS ORDERED: PROTONIX PO SCH (10:00)
== END 2017-12-03 17:22 | disposition home or self-care (01) | DRG 378 ==
LOC: ED 18:10 → 3A 12-02 00:59
PROVIDERS: ADMIT Internal Medicine; ATTEND Internal Medicine
PROC: 0DB78ZX Excision of Stomach, Pylorus, Via Natural or Artificial Opening Endoscopic, Diagnostic (ICD-10-PCS; principal; 2017-12-03)
DX: K29.61 Other gastritis with bleeding (principal); B18.1 Chronic viral hepatitis B without delta-agent; K92.0 Hematemesis; K74.60 Unspecified cirrhosis of liver; F17.200 Nicotine dependence, unspecified, uncomplicated; E87.6 Hypokalemia; R74.0 Nonspecific elevation of levels of transaminase and lactic acid dehydrogenase [LDH]; F19.10 Other psychoactive substance abuse, uncomplicated; Z71.51 Drug abuse counseling and surveillance of drug abuser; Z90.49 Acquired absence of other specified parts of digestive tract; Z85.41 Personal history of malignant neoplasm of cervix uteri
CPT/HCPCS: 36415; 80048; 80053; 80074; 80185; 81001; 81025; 82140; 82271; 82962; 83735; 85025; 85610; 86850; 86900; 86901; 88305; 88342; 99285; C9113; J1200; J2001; J2060; J2270; J2405; J2704; J2765; J3480; J7030; Q0162; Q2009